=== PATIENT | female | born 1965 | race Caucasian/White ===

== ENCOUNTER → 2022-03-01 13:55 | Outpatient (CLI) | payer BC, SELFPAY ==
--- NOTE | ~2022-03-01 | XR_ITS ---
EXAMINATION: XR chest 2V DATE: 03/01/2022 14:08 INDICATION: Chronic cough TECHNIQUE: PA and lateral views of the chest are obtained. COMPARISON: None available FINDINGS: There is mild atelectasis of the left lung base. No pleural effusion or pneumothorax. The c ardiomediastinal silhouette is normal. There is mild thoracic spondylosis. IMPRESSION: 1. No acute cardiopulmonary abnormality. Reviewed, dictated and finalized at location A. STRIAL CLEANER
== END ==
PROVIDERS: PCP Internal Medicine; Visit Provider Internal Medicine
DX: R05.3 Chronic cough (principal)
CPT/HCPCS: 71046

== ENCOUNTER → 2022-06-19 08:16 | Outpatient (CLI) | payer BC, SELFPAY ==
--- NOTE | ~2022-06-19 | CT_ITS ---
CT Scan of the Chest without Contrast: Clinical Indication: Chronic bronchitis Technique: Contiguous sections were acquired throughout the chest without intravenous contrast. Dose reduction technique was used on this scan by utilizing automated exposure control and iterative recon struction technique. The dose-length product (DLP) was 284.31 mGy-cm. Findings: There is no evidence of any significant mediastinal, hilar or axillary lymphadenopathy. The mediastin al soft tissues appear normal. There is no evidence of pleural or pericardial effusion. There is mild bronchiectasis and probable chronic scarring or atelectasis in the posterior medial lef t lower lobe. Remainder of the lungs are otherwise clear. Images through the upper abdomen reveal small hepatic cysts. Impression: Mild bronchiectasis and probable chronic scarring or atelectasis in the posterior medial left lower l obe. Correlate clinically for signs/symptoms of acute pneumonia in this region. No other significant findings. Reviewed, dictated and finalized at [facility]. STRIAL FURNACE FABRICATOR Impression: Mild bronchiectasis and probable chronic scarring or atelectasis in the posteri or medial left lower lobe. Correlate clinically for signs/symptoms of acute pne umonia in this region. No other significant findings.
== END ==
PROVIDERS: PCP Internal Medicine; Visit Provider Internal Medicine
DX: J42 Unspecified chronic bronchitis (principal); J47.9 Bronchiectasis, uncomplicated
CPT/HCPCS: 71250

== ENCOUNTER 2022-07-05 17:01 | Emergency (ER) | payer BC, SELFPAY ==
[2022-07-05 17:12] VITALS: BP 131/68; PULSE 76; RESP 16; TEMP 36.8; O2SAT 100
--- NOTE | 2022-07-05 17:22 | ED.ANIMALBIT ---
HPI - Animal Bite General Chief Complaint: Animal Bite Stated Complaint: CAT SCRATCH Time Seen by Provider: 07/05/22 17:15 Source: patient Mode of arrival: ambulatory Limitations: no limitations History of Present Illness HPI narrative: Hoda is a 56-year-old female patient presenting to the clinic today with complaints of a cat bite/scratch to her left hand. She reports she was trying to put her house cat into a tech carrier today in the cat bit her. She has swelling to the 2nd knuckle joint. Has puncture wound on the top and bottom of that joint as well as a scratch to the dorsal proximal radial aspect of left hand. Tetanus shot is up-to-date per patient. She contacted her PCP this morning and had not heard anything back until after arrival to the clinic today and her primary care doctor center in prescription for Augmentin. Related Data Home Medications Medication Instructions Recorded Confirmed fluticasone fur. 200 mcg-umeclid 1 inh inhalation DAILY 07/05/22 07/05/22 62.5 mcg-vilant 25 mcg inhalat.powder (Trelegy Ellipta) sertraline 100 mg tablet 100 mg PO DAILY 07/05/22 07/05/22 Allergies Allergy/AdvReac Type Severity Reaction Status Date / Time erythromycin base Allergy Vomiting Verified 07/05/22 17:08 [From Erythrocin] Review of Systems Review of Systems: Pertinent positives per HPI. Patient denies any fever, chills, rash, headache, visual changes, dizziness, cough, runny nose, sore throat, shortness of breath, chest pain, palpitations, nausea, vomiting, diarrhea, constipation, abdominal pain, or any urinary issues. PMFSH Comments At the time of my signature, I reviewed and agree with the nursing past medical, surgical, social, and family history. There is no relevant family history pertinent to the patient complaint. Exam Narrative: General: Well-developed, well nourished, in no apparent distress Head: Normocephalic, atraumatic. Cardio: Regular rate and rhythm, s1 and s2 normal, no murmur appreciated. Resp: Clear to auscultation bilaterally, no rhonchi, rales, wheezing or rubs. Integumentary: [place], warm, and dry, puncture wound to the dorsal and volar aspect of the left 2nd knuckle with redness and swelling and localized tenderness, cat scratch to the right radial dorsal proximal hand. Course Course Emergency Course: Portions of this record may have been created with voice recognition software. Level of Care: Express Care Visit Vital Signs Vital signs: Vital Signs Temperature 36.8 C 07/05/22 17:12 Pulse Rate 76 07/05/22 17:12 Respiratory Rate 16 07/05/22 17:12 Blood Pressure 131/68 07/05/22 17:12 Pulse Oximetry 100 07/05/22 17:12 Temperature 36.8 C 07/05/22 17:12 Pulse Rate 76 07/05/22 17:12 Respiratory Rate 16 07/05/22 17:12 Blood Pressure 131/68 07/05/22 17:12 Pulse Oximetry 100 07/05/22 17:12 Vital signs reviewed MDM - Animal Bite MDM Narrative Medical decision making narrative: At the time of visit patient is resting comfortably on the exam table. Patient's PCP as already sent in prescription for Augmentin and her tetanus is up-to-date so we cleaned the wounds in the clinic today and will have her bean picker the prescription and follow-up with her PCP. Supportive measures were discussed with the patient she voiced understanding of discharge instructions and agrees to treatment plan. Differential Diagnosis Differential diagnosis: Likely bite by animal and cat bite Discharge Plan Discharge Clinical Impression: Cat bite Qualifiers: Encounter type: initial encounter Qualified Code(s): W55.01XA - Bitten by cat, initial encounter Patient Disposition: Home, Self-Care Condition: Stable Instructions: Antibiotic Form, Animal Bite (ED), Puncture Wound (ED) Additional Instructions: Take Augmentin as prescribed Leave bandage on for 24 hours then may remove and apply band aide covering as needed. Keep wound clean and dry May brent
== END 2022-07-05 17:26 | disposition home or self-care (01) ==
PROVIDERS: Emergency Provider Nurse Practitioner Family; PCP Internal Medicine
DX: S60.512A Abrasion of left hand, initial encounter (principal); W55.03XA Scratched by cat, initial encounter
CPT/HCPCS: 99211; G0463

== ENCOUNTER 2022-07-11 09:43 | Outpatient (CLI) | payer BC, SELFPAY ==
--- NOTE | ~2022-07-11 | XR_ITS ---
PA, oblique, and lateral views of the left second finger CLINICAL HISTORY: Cat bite FINDINGS: No fracture or dislocation seen. Osseous alignment is anatomic. Joint spaces are preserved. Soft tissues are unremarkable. IMPRESSION: Unremarkable exam. Reviewed, dictated and finalized at location M. IMPRESSION: Unremarkable exam.
--- NOTE | ~2022-07-11 | XR_ITS ---
Left Hand Technique: PA, oblique, and lateral views were obtained. Clinical History: Cat bite Findings: No acute fracture or dislocation is seen. Osseous alignment is anatomic. Joint spaces are p reserved. Soft tissues are unremarkable. Impression: Unremarkable left hand. Reviewed, dictated and finalized at location M. Impression: Unremarkable left hand.
== END 2022-07-11 09:44 ==
PROVIDERS: PCP Internal Medicine; Visit Provider Internal Medicine
DX: S61.452A Open bite of left hand, initial encounter (principal); X58.XXXA Exposure to other specified factors, initial encounter; W55.01XA Bitten by cat, initial encounter
CPT/HCPCS: 73130; 73140

== ENCOUNTER 2023-04-28 08:50 | Emergency (ER) | payer BC, SELFPAY ==
[2023-04-28 09:01] VITALS: BP 115/72; PULSE 76; RESP 18; TEMP 36.4; O2SAT 100
--- NOTE | 2023-04-28 09:02 | ED.GENADULT ---
HPI - General Adult General Chief complaint: Ear Stated complaint: Ear Clogged Time Seen by Provider: 04/28/23 09:04 Source: patient, RN notes reviewed and old records reviewed Mode of arrival: ambulatory Limitations: no limitations History of Present Illness HPI narrative: 57-year-old female presents to the [facility] with a right ear feeling clogged, muffled hearing for about 1 week. Denies pain Has chronic sinus congestion. Try cleaning it out with Q-tips yesterday Onset (ago): week(s) (1) Related Data Home Medications Medication Instructions Recorded Confirmed fluticasone fur. 200 mcg-umeclid 1 inh inhalation DAILY 07/05/22 04/28/23 62.5 mcg-vilant 25 mcg inhalat.powder (Trelegy Ellipta) sertraline 100 mg tablet 100 mg PO DAILY 07/05/22 04/28/23 Allergies Allergy/AdvReac Type Severity Reaction Status Date / Time erythromycin base Allergy Vomiting Verified 04/28/23 09:04 [From Erythrocin] Review of Systems Review of Systems: All systems reviewed & are unremarkable except as noted in HPI and below Constitutional: Constitutional: Reports no additional constitutional complaints Eyes: Eyes: Reports no additional eye complaints ENT: Reports as per HPI, Denies otalgia and Reports other (Ear muffled right) Cardiovascular: Cardiovascular: Reports no additional cardiovascular complaints, Denies chest pain and Denies dyspnea Respiratory: Respiratory: Reports no additional respiratory complaints, Denies chest congestion, Denies cough and Denies dyspnea Gastrointestinal: Gastrointestinal: Reports no additional gastrointestinal complaints, Denies abdominal pain, Denies nausea and Denies vomiting Musculoskeletal: Musculoskeletal: Reports no additional musculoskeletal complaints Integumentary/Breasts: Skin/Breast: Reports system reviewed and no additional complaints, except as docu Neurologic: Reports system reviewed and no additional complaints, except as documented Psychiatric: Psychiatric: Reports no additional psychiatric complaints Allergic/Immunologic: Allergic/Immunologic: Reports no additional allergic/immunologic complaints PMFSH Comments At the time of my signature, I reviewed and agree with the nursing past medical, surgical, social, and family history. There is no relevant family history pertinent to the patient complaint. Exam Const: General: cooperative, healthy appearing, comfortable, no acute distress, well developed, alert and well nourished Nutritional Appearance: well nourished Orientation/consciousness: patient oriented x3 Limitations: no limitations HENMT: Head: normal to inspection Ears: hearing grossly normal bilaterally, external ears normal, EAC's normal, mastoids normal, no periauricular adenopathy and TM abnormal bulging on the right and wth effusion serous bilateral; not serosanguinous and no other; not erythematous and with no loss of landmarks Face/Nose/Sinus: Normal external nose present, Normal nares present, Normal nasal mucous membranes and turbinates present, normal facial exam and face symmetric Face and sinus: normal facial exam and face symmetric Mouth: Yes Normal oral and palatal mucosa present, Yes lip normal and Yes moist mucous membranes Throat: posterior oropharynx normal and uvula midline Eyes: General: appearance normal, both eyes and all related structures Alignment and Position: alignment normal Periorbital: periorbital findings normal Pupils: Equal, round and reactive pupils present EOM: EOMs intact bilaterally Neck: Neck: normal visual inspection, full ROM, no lymphadenopathy and no meningeal signs Chest: Chest palpation & inspection: normal inspection of the chest Resp: Effort & Inspection: normal respiratory effort and able to speak in complete sentences Auscultation: clear to auscultation bilaterally, no crackles, no rales, no rhonchi and no wheezes Cardio: Rate: regular rate Rhythm: regular rhythm Back/Spine/Pelvis: Cervical Spine: cervical RO
[2023-04-28 09:04] VITALS: BP 115/72; PULSE 76; RESP 18; TEMP 36.4; O2SAT 100
== END 2023-04-28 09:35 | disposition home or self-care (01) ==
PROVIDERS: Emergency Provider Nurse Practitioner; PCP Internal Medicine
DX: H65.01 Acute serous otitis media, right ear (principal); J45.909 Unspecified asthma, uncomplicated; F32.A Depression, unspecified
CPT/HCPCS: 99213; G0463

== ENCOUNTER 2023-09-11 11:02 | Outpatient (CLI) | payer BC, SELFPAY ==
[2023-09-11 13:04] LABS: Rheumatoid Factor < 12.0 IU/ML (<12)
[2023-09-11 17:27] LABS: Basophils Percent Auto 0.3 % (0.2-1.2); Eosinophils Absolute Auto 0.1 K/mm3 (0-0.3); Eosinophils Percent Auto 1.1 % (0-4.4); Hematocrit 40.8 % (37.0-47.0); Hemoglobin 12.9 g/dL (12.0-15.0); Immature Granulocyte Absolute 0.03 K/mm3 (0.00-0.031); Immature Granulocyte Percent A 0.4 % (0-0.5); Lymphocytes Absolute Auto 1.82 K/mm3 (0.9-3.2); Mean Corpuscular HGB Conc 31.6 g/dl (32-36); Mean Corpuscular Hemoglobin 28.9 pg (26-34); Mean Corpuscular Volume 91.3 fl (80-100); Mean Platelet Volume 10.3 fl (7.4-10.4); Monocytes Absolute Auto 0.5 K/mm3 (0.1-0.6); Neutrophils Absolute Auto 4.8 K/mm3 (1.3-6.7); Neutrophils Percent Auto 66.2 % (45.5-73.1); Platelet Count Result 228 k/mm3 (150-375); Red Blood Count 4.47 M/mm3 (4.2-5.4); Red Cell Distribution Width 14.6 % (11.5-14.5); White Blood Count 7.3 K/mm3 (4.5-10.0)
[2023-09-12 11:53] LABS: Immunoglobulin A 306 mg/dL (47-310); Immunoglobulin G 1067 mg/dL (600-1640); Immunoglobulin M 85 mg/dL (50-300)
[2023-09-12 13:47] LABS: Anti Cyclic Citrullinated Pept <16 UNITS
[2023-09-14 15:24] LABS: Immunoglobulin G, Serum 989 mg/dL (600-1640); Immunoglobulin G1 491 mg/dL (382-929); Immunoglobulin G2 347 mg/dL (241-700); Immunoglobulin G3 88 mg/dL (22-178); Immunoglobulin G4 21.8 mg/dL (4.0-86.0)
[2023-10-02 12:44] LABS: Aspergillus Fumigatus K/UL <0.10 kU/L; Conventional Class 0
[2023-10-08 08:05] LABS: Aspergillus fumigatus (m3) IgG 29.8 mcg/mL (<2.0)
== END 2023-09-11 11:03 | disposition home or self-care (01) ==
PROVIDERS: PCP Internal Medicine; Visit Provider Internal Medicine Pulmonary Disease
DX: J44.9 Chronic obstructive pulmonary disease, unspecified (principal); J47.9 Bronchiectasis, uncomplicated; J45.909 Unspecified asthma, uncomplicated
CPT/HCPCS: 36415; 82784; 82787; 85025; 86001; 86003; 86200; 86430

== ENCOUNTER 2023-09-24 11:17 | Outpatient (CLI) | payer BC, SELFPAY ==
--- NOTE | 2023-09-25 09:03 | WPDPFTINT ---
PFT Procedure Performed PFT Procedure Performed Spirometry with Pre/Post Bronchodilator Plethysmography (Lung Vol) Diffusing Cap (DLCO) Flow Vol Loop PFT Interpretation Lung volumes were measured with the body plethysmography method. Lung volumes are unremarkable. Spirometry showed normal expiratory flow rates and a normal FEV1 to FVC ratio 76%. Following administration of a bronchodilator there was no significant increase in expiratory flow rates. Lung diffusion capacity is within the normal range at 87% predicted. Although the flow volume loop suggested a possible plateau on the expiratory limp, further examination of other loops during the first trial revealed a normal flow volume loop. Impression: Spirometry, lung volumes, and lung diffusion capacity all within the normal range.
== END 2023-09-24 11:18 | disposition home or self-care (01) ==
LOC: ANHPFT 11:17
PROVIDERS: PCP Internal Medicine; Visit Provider Internal Medicine Pulmonary Disease
DX: J47.9 Bronchiectasis, uncomplicated (principal); J45.909 Unspecified asthma, uncomplicated
CPT/HCPCS: 94060; 94726; 94729

== ENCOUNTER 2023-09-24 13:28 | Outpatient (RCR) | payer BC, SELFPAY | END 2023-12-23 23:59 | disposition home or self-care (01) | LOC: ANHLAB 13:28 | PROVIDERS: PCP Internal Medicine; Visit Provider Internal Medicine Pulmonary Disease | DX: J47.9 Bronchiectasis, uncomplicated (principal); J45.909 Unspecified asthma, uncomplicated | CPT/HCPCS: 87015; 87116; 87206 ==

== ENCOUNTER 2023-10-16 10:31 | Outpatient (CLI) | payer BC, SELFPAY | END 2023-10-16 10:32 | disposition home or self-care (01) | LOC: ANHLAB 10:32 | PROVIDERS: PCP Internal Medicine; Visit Provider Internal Medicine Pulmonary Disease | DX: J47.9 Bronchiectasis, uncomplicated (principal) | CPT/HCPCS: 87070; 87077; 87186; 87205 ==

== ENCOUNTER 2024-04-20 08:47 | Emergency (ER) | payer BC, SELFPAY ==
--- NOTE | ~2024-04-20 | XR_ITS ---
Clinical Indication: None provided PA and lateral views of the chest: Comparison: 03/01/2022 Findings: Possible focal retrocardiac airspace disease. Right lung clear. Cardiomediastinal silhouet te is within normal limits. Bones and soft tissues are unremarkable. Impression: Suspected left lower lobe airspace disease. Correlate for atelectasis or pneumonia. Reviewed, dictated and finalized at location . NG MARKER Impression: Suspected left lower lobe airspace disease. Correlate for atelectasis or pneumo noreen.
[2024-04-20 08:58] VITALS: BP 122/77; PULSE 80; RESP 16; TEMP 36.9; O2SAT 100
--- NOTE | 2024-04-20 09:24 | ED_ITS ---
HPI - URI/Sore Throat General Chief Complaint: Upper Respiratory Infection Stated Complaint: Coughing For a few weeks Time Seen by Provider: 04/20/24 09:15 Source: patient, RN notes reviewed and old records reviewed Mode of arrival: ambulatory Limitations: no limitations History of Present Illness HPI Narrative: 58-year-old female who presents to [facility] with complaints of cough for a few weeks states actually beginning the part march. Patient reports that she has a sore throat from all the coughing and she report that she has had nasal drainage of yellowish mucous. Patient reports no fevers, has been taking DayQuil and NyQuil,does have history of asthma has Anoro inhaler she uses daily and rescue Albuterol. MD elicited complaint: cough (persistent), rhinorrhea and nasal congestion Onset (ago): week(s) (3-4 weeks) Consistency: constant Description of mucous: yellow and green Able to tolerate fluids by mouth: Yes Treatments prior to arrival: other (inhaler DayQuil and NyQuil) Related Data Home Medications ?Medication ?Instructions ?Recorded ?Confirmed ?Last Taken ?Type sertraline 100 mg tablet 100 mg PO DAILY 07/05/22 04/20/24 Unknown History albuterol sulfate 90 mcg/actuation 2 puff inhalation Q4H PRN 06/05/23 04/20/24 Unknown History aerosol inhaler shortness of breath or wheezing Allergies Allergy/AdvReac Type Severity Reaction Status Date / Time erythromycin base (From Allergy Vomiting Verified 04/20/24 08:55 Erythrocin) Dustmite extract Allergy Intermediate Wheezing Uncoded 04/20/24 08:55 Cuello jenny Allergy Intermediate Wheezing Uncoded 04/20/24 08:55 Review of Systems Review of Systems: CONSTITUTIONAL: reports malaise, no chills, sweats, or fever. EYES: Denies visual changes, redness, or discharge. ENT: Reports rhinorrhea, congestion, sinus pain,no otalgia and positive for sore throat. CARDIOVASCULAR: Denies chest pain, palpitations, or edema. RESPIRATORY: Reports persistent cough.? Denies dyspnea, reports has noted wheezing at times GASTROINTESTINAL: Denies abdominal pain, nausea, vomiting, diarrhea SKIN: Denies rash or itching. MUSCULOSKELETAL: Denies myalgia. NEUROLOGIC: Denies headache. All systems reviewed & are unremarkable except as noted in HPI and below PMFSH Past Medical History Medical History Hammertoe of second toe of right foot Cyst of right breast 1991 Allergic rhinitis Asthma, intermittent Bronchiectasis Chronic scarring Squamous cell carcinoma of neck 2019 Shingles 2017 Pneumonia 4 times Surgical History Surgical History History of foot surgery removal of a needle H/O removal of cyst R breast H/O LEEP Family History Family History Mother , Natural causes MDD (major depressive disorder) Hypothyroidism Sibling , Accidental overdose MDD (major depressive disorder) Drug dependency Father , unclear Alcoholism Social History Social History Social History: caffeine use Smoking status: Never smoker Alcohol intake: current Drinks per week: 5 Occupation/Education: occupation 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 There is no relevant family history pertinent to the presenting complaint Exam Narrative: GENERAL: Well-appearing, well-nourished, and in no acute distress. HEAD: Normocephalic EYES: PERRLA, conjunctivae clear ENT: Nares clear, turbinates edematous and erythematous, clear to yellow discharge. Mucous membranes moist. TM pearly brooks with dull light reflex bilaterally; no tragal tenderness. Oropharynx erythematous without lesions. Tonsils not enlarged and without exudate, no drooling, no hoarseness, no trismus, uvula midline.post nasal drainage noted NECK: Supple. No lymphadenopathy CHEST: Rhonchi left base auscultation with some scattered wheezes, breath sounds equal. positive wheezing,left base rhonchi,no rales, or stridor. No respiratory distress, speaks in full sentences.productive cough,SAO2 100% on room air HEART: Regular rate and rhythm. No murmur heard. SKIN: Warm, dry, no rash. NEURO: Alert and oriented x3. PSYCH: Normal mood and affect Course Course Emergency Course: Patient is aware of diagnosis, understands and agrees to treatment plan.? Anticipatory guidance given.? Patient agrees to follow-up as directed and is aware of reasons to seek care at the emergency department. Portions of this record may have been created with voice recognition software Level of Care: Express Care Visit Vital Signs Vital signs: Vital Signs Temperature 36.9 C 04/20/24 08:58 Pulse Rate 80 04/20/24 08:58 Respiratory Rate 16 04/20/24 08:58 Blood Pressure 122/77 04/20/24 08:58 Pulse Oximetry 100 04/20/24 08:58 Temperature 36.9 C 04/20/24 08:58 Pulse Rate 80 04/20/24 08:58 Respiratory Rate 16 04/20/24 08:58 Blood Pressure 122/77 04/20/24 08:58 Pulse Oximetry 100 04/20/24 08:58 Reviewed MDM - URI/Sore Throat MDM Narrative Medical decision making narrative: Differential diagnosis considered: Lucia virus, strep pharyngitis, allergic rhinitis, upper respiratory tract infection, sinusitis, rhinosinusitis, nasopharyngitis. viral pharyngitis, otitis media, otitis externa, pneumonia, bronchitis, viral cough syndrome, viral syndrome, and influenza.? Exam findings show no acute concerns or changes; patient is non-toxic appearing and is in no distress.? Patient is appropriate for outpatient treatment and follow-up. Differential Diagnosis Differential diagnosis: Likely upper respiratory infection, sinusitis, viral infection and other (pneumonia, airspace disease) Medical Records Attestation: I reviewed the patient's medical records. Lab Data Attestation: I reviewed the patient's lab results. Imaging Data Attestation: I personally reviewed and interpreted this imaging study as follows: My impression: left lower lob airspace disease correlate atelectasis or pneumonia Radiologist's impression: Express [facility] [facility] [place] [address] XRay Report Signed Patient: Hoda Sky : 1965 MR#: [id number] Age: 58 Acct:[id number] Loc: [id number] ADM Date: 04/20/24Attending Dr: Ordering Physician: Kylie Yepez APRN Date of Service: 04/20/24 Procedure(s): XR chest 2V Accession Number(s): [id number] cc: Kylie Yepez APRN; Jessica Will MD~ Clinical Indication: None provided PA and lateral views of the chest: Comparison: 03/01/2022 Findings: Possible focal retrocardiac airspace disease. Right lung clear. Cardiomediastinal silhouette is within normal limits. Bones and soft tissues are unremarkable. Impression: Suspected left lower lobe airspace disease. Correlate for atelectasis or pneumonia. Reviewed, dictated and finalized at [facility]. ARCH/PROGRAM DIRECTOR Dictated By: Rickie Luciano MD 04/20/2443 Signed By: <Electronically signed by Rickie Luciano MD in OV> 04/20/24943 Critical Care Time Critical Care Time Critical Care Time: No Discharge Plan Discharge Clinical Impression: Pneumonia Qualifiers: Pneumonia type: due to unspecified organism Laterality: left Lung location: lower lobe of lung Qualified Code(s): J18.9 - Pneumonia, unspecified organism Patient Disposition: Home, Self-Care Condition: Stable Instructions: Antibiotic Form, Pneumonia (ED) Additional Instructions: Increase fluids especially juices and water [id number] cough and cold medicine of your choice for your symptoms Zyrtec or Claritin or Jovanna daily Continue your inhaler/nebulizer as directed Steroids as directed--take with food heat to the face 20-30 minutes 4-6 times a day for pain Salt water gargles, throat lozenges or throat sprays as desired Antibiotic as directed--finished the medication If your symptoms persist, change or worsen significantly before you can contact your personal physician then please, without delay, go to the emergency department for further evaluation. Follow-up with PCP in 7-10 days or sooner if needed Follow up with PCP soon in regards to your blood pressure which is elevated abo ve threshold for referral. Blood pressure above 120/80 may indicate pre- hypertension. minimal elevation systolic 122/77 monitor for any fevers Patient Language: Irish Prescriptions: New prednisone 20 mg tablet 20 mg PO BID Qty: 10 0RF Rx Instructions: taken a.m. and early p.m. azithromycin 250 mg tablet See Rx Instructions .ROUTE .COMPLEX Qty: 6 0RF Rx Instructions: For 250 mg dose pack: take 500 mg today (day 1), then 250 mg for 4 days (days 2-5) No Action sertraline 100 mg tablet 100 mg PO DAILY Anoro Ellipta 62.5-25 mcg/actuation blister with device 1 inh inhalation Q24H Qty: 1 3RF albuterol sulfate 90 mcg/actuation HFA aerosol inhaler 2 puff inhalation Q4H PRN (Reason: shortness of breath or wheezing) levofloxacin 500 mg tablet 500 mg PO DAILY Qty: 14 0RF albuterol sulfate 2.5 mg /3 mL (0.083 %) solution for nebulization 2.5 mg inhalation Q4-6H PRN (Reason: shortness of breath or wheezing) Qty: 180 4RF sodium chloride 3 % solution for nebulization 4 ml inhalation Q8H PRN (Reason: secretions) Qty: 240 3RF Follow-up/Referrals: Jessica Will MD [Primary Care Provider] - Time of Disposition: 10:18 Quality Viral Coma Scale Eyes: Open Verbal: Oriented and Alert Motor: Follows Commands [place] Coma Total Score: 15
== END 2024-04-20 10:21 | disposition home or self-care (01) ==
PROVIDERS: Emergency Provider Registered Nurse; PCP Internal Medicine
DX: J18.9 Pneumonia, unspecified organism (principal); J45.909 Unspecified asthma, uncomplicated; Z85.828 Personal history of other malignant neoplasm of skin
CPT/HCPCS: 71046; 99213; G0463

== ENCOUNTER 2025-03-30 13:29 | Emergency (ER) | payer OTHER, SELFPAY ==
--- NOTE | 2025-03-30 13:37 | ED_ITS ---
HPI - Headache General Chief Complaint: Headache Stated Complaint: BLURRED VISION/L HAND TWITCHING/HEADACHE Time Seen by Provider: 03/30/25 13:37 Source: patient Mode of arrival: ambulatory Limitations: no limitations History of Present Illness HPI Narrative: Hoda is a 59-year-old female patient presenting to the clinic today with complaints of headache, blurry vision, and left hand/arm twitching. She reports headache and blurry vision started approximately 1 hour ago while attending a zoom meeting on her computer. States her vision went blurry so she took her contacts out put her glasses on and she still had blurry vision. Developed a headache over the left frontal/temporal region. Rates her pain currently a 1 at 10. States over the last week she has had left arm/hand twitching. Denies any dizziness. Denies any recent head injury. Has not taken any medications for her symptoms. Related Data Home Medications ?Medication ?Instructions ?Recorded ?Confirmed ?Last Taken ?Type sertraline 100 mg tablet 100 mg PO DAILY 07/05/2202/12 Unknown History albuterol sulfate 90 mcg/actuation 2 puff inhalation Q 4H PRN 06/05/23 03/30/25 Unknown History aerosol inhaler shortness of breath or wheez ing albuterol 90 mcg-budesonide 80 2 inh inhalation ONCE 0 10/28/24 03/30/25 Unknown History mcg/actuation HFA aerosol inhaler (Airsupra) naltrexone 8 mg-bupropion 90 mg 2 tablet PO QAM AND QP M 03/30/25 03/30/25 Unknown History tablet,extended release (Contrave) Allergies Allergy/AdvReac Type Severity Reaction Status Date / Time erythromycin base (From Allergy Vomiting Verified 03/30/25 13:37 Erythrocin) Dustmite extract Allergy Intermediate Wheezing Uncoded 04/20/24 08:55 Cuello jenny Allergy Intermediate Wheezing Uncoded 04/20/24 08:55 Review of Systems Review of Systems: Pertinent positives per HPI. Patient denies any fever, chills, rash, dizziness, cough, runny nose, sore throat, shortness of breath, chest pain, palpitations, nausea, vomiting, diarrhea, constipation, abdominal pain, or any urinary issues. [facility] Past Medical History Medical History Hammertoe of second toe of right foot Cyst of right breast 1991 Allergic rhinitis Asthma, intermittent Bronchiectasis Chronic scarring Squamous cell carcinoma of neck 2019 Shingles 2018 Pneumonia 4 times Surgical History Surgical History History of foot surgery removal of a needle H/O removal of cyst R breast H/O LEEP Family History Family History Mother , Natural causes MDD (major depressive disorder) Hypothyroidism Sibling , Accidental overdose MDD (major depressive disorder) Drug dependency Father , unclear Alcoholism Social History Social History Social History: caffeine use Smoking status: Never smoker Alcohol intake: current Drinks per week: 5 Occupation/Education: occupation 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 There is no relevant family history pertinent to the patient complaint. Exam Narrative: General: Well-developed, well nourished, in no apparent distress Head: Normocephalic, atraumatic Eyes: Pupils equally round and reactive to light bilaterally, EOM intact, sclera and conjunctive clear, no discharge, lids normal Ears: TMs intact and clear, ear canals clear, no drainage, grossly hearing normal. Nose: Nares patent, no discharge, no inflammation, no sinus tenderness. Mouth: Oropharynx without lesions or masses, good dentition, MMM. Tongue midline, even rise and fall of uvula Neck: Supple, trachea midline, no enlargement of anterior or posterior cervical nodes, no thyroid masses or goiter palpable. Cardio: Regular rate and rhythm, s1 and s2 normal, no murmur appreciated. Resp: Clear to auscultation bilaterally anteriorly and posteriorly, no rhonchi, rales, wheezing or rubs Musculoskeletal: No deformity, non-tender to palpation, grossly normal range of motion, muscle strength strong and equal, peripheral pulse strong, no edema, no cyanosis, normal gait and station Neuro: Alert and oriented x4 with normal speech, no focal deficits, cranial nerves I through XII intact, muscle strength 5 out of 5, sensation intact bilaterally, left hand/arm tremors Course Course Level of Care: Express Care Visit Vital Signs Vital signs: Vital Signs Temperature 36.4 C L 03/30/25 13:42 Pulse Rate 79 03/30/25 13:42 Respiratory Rate 16 03/30/25 13:42 Blood Pressure 156/86 H 03/30/25 13:42 Pulse Oximetry 99 03/30/25 13:42 Temperature 36.4 C L 03/30/25 13:42 Pulse Rate 79 03/30/25 13:42 Respiratory Rate 16 03/30/25 13:42 Blood Pressure 156/86 H 03/30/25 13:42 Pulse Oximetry 99 03/30/25 13:42 Transfer Transfered to: [facility] Transportation: Other (Private car- family/friend to drive) Transfer rationale: Headache, blurry vision, left hand/arm tremors Accepting physician: Spoke with Kiran ABDI- declined to give accepting provider or allow this [employer] MACHINE to speak to provider Transfer comments: Private car MDM MDM Narrative Medical decision making narrative: At the time of visit patient is resting comfortably on the exam table. Patient appears to be nontoxic. Complaints of headache, blurry vision, and left hand/arm twitching. She reports headache and blurry vision started approximately 1 hour ago while attending a zoom meeting on her computer. States her vision went blurry so she took her contacts out put her glasses on and she still had blurry vision. Developed a headache over the left frontal/temporal region. Rates her pain currently a 1 at 10. States over the last week she has had left arm/hand twitching. Denies any dizziness. Denies any recent head injury. Has not taken any medications for her symptoms. On exam patient has a normal neuro exam but she does have left hand tremors. Complaints of headache over the left frontal and temporal lobe rating it a 1/10 currently. Blood sugar was ordered. BP was 158/86 Labs: Blood sugar was 84 in the clinic today. Plan: I suspect patient has headache with blurry vision and left hand/arm tremors. Recommend transfer to the ER for further evaluation-rule out TIA/CVA. Contacted [facility] and spoke with Dr. Terry, she suspects this may be a visual problem. Recommend transfers to emergency facility that has Ophthalmology on-call. Discussed this with the patient and offer to send her to [place] or [facility] ER. Patient would like to go to [facility]. Patient is able to have a friend drive her to the hospital. Spoke with Kiran ABDI at [place] [facility] report was given for continuity of care. Kiran declined to give me and excepting providers name or speak with a provider at this time. Differential Diagnosis Differential Diagnosis: Differential diagnostic considerations for headache include ICH, IC infx, migraine, brain mass, tension NÚÑEZ, CVA/TIA, vasculitis/arteritis, cluster headache, TIA, dissection (carotid/vertebral), tumor/mass/abscess, thrombosis, meningitis, sinusitis, post-concussion syndrome. Lab Data Labs: Lab Results 03/30/25 Range/Units 13:51 POC Capillary Glucose 84 (65-105) mg/dl Discharge Plan Discharge Clinical Impression: Blurred vision, Tremor of left hand Headache Qualifiers: Headache type: unspecified Headache chronicity pattern: acute headache Intractability: not intractable Qualified Code(s): R51.9 - Headache, unspecified Patient Disposition: Acute Care Hospital Condition: Stable Patient Language: Croatian Prescriptions: No Action sertraline 100 mg tablet 100 mg PO DAILY Contrave 8-90 mg tablet extended release 2 tablet PO QAM AND QPM albuterol sulfate 90 mcg/actuation HFA aerosol inhaler 2 puff inhalation Q4H PRN (Reason: shortness of breath or wheezing) Airsupra 90-80 mcg/actuation HFA aerosol inhaler 2 inh inhalation ONCE Rx Instructions: as a single dose; may repeat up to 6 doses per day (12 inhalations) albuterol sulfate 2.5 mg /3 mL (0.083 %) solution for nebulization 2.5 mg inhalation Q4-6H PRN (Reason: shortness of breath or wheezing) Qty: 180 4RF sodium chloride 3 % solution for nebulization 4 ml inhalation Q8H PRN (Reason: secretions) Qty: 240 3RF Follow-up/Referrals: Abhi,MD Matteo [Primary Care Provider, Unknown] Time of Disposition: 14:20 Quality NIHSS Nursing Documentation ED NIHSS nursing documentation: reviewed/agree
[2025-03-30 13:42] VITALS: BP 156/86; PULSE 79; RESP 16; TEMP 36.4; O2SAT 99
== END 2025-03-30 14:00 | disposition short-term general hospital (02) ==
PROVIDERS: Emergency Provider Nurse Practitioner Family; PCP Internal Medicine
DX: H53.8 Other visual disturbances (principal); R25.1 Tremor, unspecified; R51.9 Headache, unspecified; J45.909 Unspecified asthma, uncomplicated; Z85.828 Personal history of other malignant neoplasm of skin
CPT/HCPCS: 82948; 99213; G0463